=== PATIENT | male | born 1935 | race Caucasian/White ===

== ENCOUNTER 2017-06-24 14:13 | Inpatient (IN) | payer MEDICARE, OTHER ==
[~2017-06-24] VITALS: Ht 195.6 cm; Wt 112.5 kg
[~2017-06-24 14:13] MED LIST: ASPI325T32 PO; CLOP75TA3 PO; FURO-129 PO; GABA300C PO; GLIP2.5T2 PO; GLUC100016 PO; KRIL500C PO; LACT1CAP65 PO; LEVO88TA4 PO; LOSA100T29 PO; MECL-107 PO; MULT-64 PO; OMEP-113 PO; POTA20TA7 PO; UBID30CA12 PO
[2017-06-24 14:16] VITALS: BP 177/94; PULSE 63; RESP 16; O2SAT 96
[2017-06-24 16:57] LABS: BASOPHILS % (AUTO) 0.7 % (0-3); EOSINOPHILS % (AUTO) 3.2 % (0-5); Mean Corpuscular Hemoglobin 33.9 pg (27.0-35.0); Mean Corpuscular Volume 94.4 fL (81-100); NEUTROPHILS % (AUTO) 68.3 % (40-74); Platelet Count 138 bil/L (150-400)
--- NOTE | 2017-06-24 17:07 | DRSVH ---
PROCEDURE: X-RAY CHEST ONE VIEW, PORTABLE ([id number]) INDICATIONS: dyspnea TECHNIQUE: One view of the chest was acquired. COMPARISON: [facility], CR, XR CHEST 2VW, 10/04/2016, 13:26. FINDINGS: Surgical changes and devices: None. Lungs and pleura: No pleural effusions or pneumothorax. Lungs are clear. A basilar scarring/atelec tasis as before Mediastinum: Mediastinal contours appear normal. Heart size is normal. Bones and chest wall: No suspicious bony lesions. Overlying soft tissues appear unremarkable. IMPRESSION: No acute disease or interval change. Dictated by: Krishna Ramos M.D. on 06/24/2017 at 16:05 Approved by: Krishna Ramos M.D. on 06/24/2017 at 16:06
[2017-06-24 17:18] LABS: TROPONIN T < 0.010 ug/L (0.0-0.011)
--- NOTE | 2017-06-24 17:27 | ED.REPORT ---
HPI-Dyspnea / Wheezing Date of Service Jun 24, 2017 ED Provider: Quang Bond MD Pt is an 81 year old male with a history of cardiac stent, CAD, A-fib, bradycardia, DM, and HTN who presents to the ED complaining of dyspnea onset 3 days ago. He c/o associated SOB. He denies cough, fever, chest pain, and abdominal pain. The pt reports that he has experienced similar symptoms previously and he does not want a pacemaker. Nursing Notes Stated Complaint: TROUBLE BREATHING Chief Complaint: Respiratory Complaints Nursing Notes Reviewed: Yes Allergies: Coded Allergies: imipramine (Verified Allergy, Severe, Cardiac palpitaion and irregular heart beat, 06/24/17) pneumococcal vaccine (Verified Allergy, Severe, Anaphylaxis, 06/24/17) Penicillins (Verified Allergy, Intermediate, Rash, 06/24/17) ELISE Inhibitors (Verified Allergy, Unknown, 06/24/17) cephalexin (Verified Allergy, Unknown, 06/24/17) Scheduled Alpha Lipoic Acid (Alpha Lipoic Acid) 600 Mg Capsule 600 MG PO DAILY Aspirin (Aspirin) 325 Mg Tablet.dr 325 MG PO BID Clopidogrel Bisulfate (Plavix) 75 Mg Tablet 75 MG PO DAILY Gabapentin (Neurontin) 300 Mg Capsule 300-900 MG PO TID Glipizide ER (Glipizide ER) 2.5 Mg Tab.er.24 2.5 MG PO AM Levothyroxine (Levothyroxine) 88 Mcg Tablet 88 MCG PO DAILY Losartan Potassium (Losartan Potassium) 100 Mg Tablet 100 MG PO DAILY Multivitamin (Once Daily) 1 Each Tablet 1 EACH PO DAILY Potassium Chloride (Potassium Chloride) 10 Meq Tab.er.prt 10 MEQ PO DAILY TAKE WITH FOOD Scheduled PRN Glucosamine Sulfate 2Kcl (Glucosamine) 1,000 Mg Tablet 1,000 MG PO DAILY PRN PRN For Pain Lidocaine HCl (Lidocaine) 142 Appl/37.5 Gm Oint 1 APPL TOP q8 hours PRN PRN For Pain General Time Seen by MD: 17:14 Chief Complaint Other (dyspnea) Hx Obtained From: Patient, EMS Arrived By: Ambulance Sudden in Onset?: No Onset Occurred: 3 days ago Symptom Duration: Since onset Location: : None Severity: Current: No pain currently Severity: Maximum: No pain Recent Healthcare: Recent doctor visit Similar Sx Previous: Yes Past Medical History Past Medical History Chronic edema Rosacea Diabetic neuropathy Hypothyroidism History of vertigo Coronary disease history of stent to the left circumflex and angioplasty to the left anterior descending Bradycardia Reports: Cancer, Coronary artery disease, Diabetes mellitus, GERD, Hyperlipidemia, Hypertension Reports: Atrial fibrillation (not on coumadin) Past Surgical History Cardiac catheterization with stent to the left circumflex and angioplasty to left anterior descending artery (most recent cardiac cath 10/11/2014) Abd operation for adhesions Stint Reports: Angioplasty Smoking History Former Smoker Social History Alcohol Use: Denies alcohol use Drug Use: Denies drug use Ambulatory Status Independent Review of Systems Constitutional: Denies: Fever Respiratory: Reports: Dyspnea on exertion, Shortness of breath, Denies: Non-productive cough Cardiovascular: Denies: Chest pain Complete sys rev & neg: except as marked. GI: Denies: Abdominal pain Physical Exam Initial Vital Signs Vital Signs (First) Date Time Temp Pulse Resp B/P Pulse Ox O2 Delivery O2 Flow Rate FiO2 06/24/17 14:16 36.5 63 16 177/94 96 Room Air Initial VS: Reviewed Head / Eyes: Atraumatic, Normocephalic Abdomen / GI: Soft, Non-tender Extremities: Vascular intact, Neuro intact Skin: Warm, Dry, No cyanosis Neurologic: Alert, Oriented, Nonfocal Psychiatric: Mood/affect normal, Behavior normal General/Constitutional: Awake, Alert Neck: Atraumatic, Full range of motion Respiratory / Chest: Atraumatic, Breath sounds NL, Breath sounds = bilat Cardiovascular: Regular rhythm, Heart sounds NL, No murmurs Heart Rate / Rhythm: Positive: Bradycardia The heart rate would dip down into the 30's on the monitor. Interpretation & Diagnostics Lab Results Interpretation Result Diagram: 06/24/17 1652 06/24/17 1652 Test 06/24/17 16:52 06/24/17 17:56 White Blood Count 5.6th/mm3 (3.8-10.1) Red Blood Count 4.13mil/mm3 (4.40-5.80) Hemoglobin 14.0g/dL (13.8-17.2) Hematocrit 39.0% (41.0-50.0) Mean Corpuscular Volume 94.4fL (81-100) Mean Corpuscular Hemoglobin 33.9pg (27.0-35.0) Mean Corpuscular Hemoglobin Concent 35.9% (32.0-37.0) Red Cell Distribution Width 13.2% (12.3-15.4) Platelet Count 138bil/L (150-400) Neutrophils (%) (Auto) 68.3% (40-74) Lymphocytes (%) (Auto) 18.6% (14-46) Monocytes (%) (Auto) 9.0% (4-12) Eosinophils (%) (Auto) 3.2% (0-5) Basophils (%) (Auto) 0.7% (0-3) Sodium Level 139mEq/L (134-144) Potassium Level 4.2mEq/L (3.5-5.2) Chloride Level 104mEq/L (97-108) Carbon Dioxide Level 20mmol/L (18-29) Blood Urea Nitrogen 29mg/dL (8-27) Creatinine 1.08mg/dL (0.76-1.27) Estimat Glomerular Filtration Rate 70mL/min (>59) Glucose Level 104mg/dL (60-99) Calcium Level 9.4mg/dL (8.5-10.1) Total Bilirubin 0.4mg/dL (0.0-1.2) Aspartate Amino Transf (AST/SGOT) 21U/L (0-50) Alanine Aminotransferase (ALT/SGPT) 17U/L (0-44) Alkaline Phosphatase 57U/L (25-160) Pro-B-Type Natriuretic Peptide 680.7pg/mL (0-486) Total Protein 7.1g/dL (6.4-8.4) Albumin 3.9g/dL (3.4-5.0) Hold Desai Top Tube Received (Received) Urine Color Yellow (YELLOW) Urine Appearance Clear (CLEAR,HAZY) Urine pH 5.0 (5.0-8.0) Urine Specific [place] 1.010 (1.003-1.035) Urine Protein Negativemg/dL (NEG,TRACE) Urine Glucose (UA) Negativemg/dL (NEGATIVE) Urine Ketones Negativemg/dL (NEGATIVE) Urine Occult Blood Negative (NEGATIVE) Urine Nitrite Negative (NEGATIVE) Urine Bilirubin Negative (NEGATIVE) Urine Urobilinogen Normalmg/dL (NORMAL) Urine Leukocyte Esterase Negative (NEGATIVE) Urine RBC 0-2/hpf (0-2) Urine WBC 0-5/hpf (0-5) Urine Epithelial Cells Occasional/hpf (NONE-MOD) Urine Crystals None seen (NONE SEEN) Urine Bacteria None/hpf (NONE-FEW) Urine Hyaline Casts None/lpf (NONE) Urine Granular Casts None seen (NONE SEEN) Urine Waxy Casts None seen (NONE SEEN) Urine Red Blood Cell Casts None seen (NONE SEEN) Urine White Blood Cell Casts None seen (NONE SEEN) Urine Mucus None seen (None Seen) Urine Trichomonas None seen (NONE SEEN) Urine Yeast None (NONE SEEN) Urinalysis Comment None Urine Culture Reflexed Not indicated X-Ray Chest Interpretation Chest Xray Interpretation: IMPRESSION: No acute disease or interval change. Dictated by: Krishna Ramos M.D. on 06/24/2017 at 16:05 View: Portable, 1 view Interpretation / Wet Read by: Interpret - Radiologist Re-Eval/Medical Decision Med Decision/Clinical Course 81-year-old male history of bradycardia, atrial fibrillation, CAD presenting with dyspnea 3 days. He reports this happens when he gets bradycardic. He is bradycardic from the 30s to the 50s here. Chest x-ray normal. Troponins are negative. Likely with symptomatic bradycardia. His heart rate was in the 50s time of transfer. He will be admitted to the hospital for symptomatically bradycardia, dyspnea. Of note, patient does not want a pacemaker. He is DNR/DNI. Source of Hx: Old records Re-Evaluation/Progress : Time of Eval: 17:20 Re-Evaluation/Progress Note: Informed pt of plan for admission. Pt understands and agrees with plan for admission. All questions addressed. Consultation : Consulted With: Hospitalist Call Returned at: 17:59 Bioinformatics Computer Scientist: Will see patient, Agrees with eval, Agrees with plan, Accepts admit Note: Consulted with Resident who will be admitting for Dr. Dejesus. Counseled Regarding: Diagnosis, Lab results, Need for admission Discharge & Departure Impression: Primary Impression: Bradycardia Additional Impression: Dyspnea Dyspnea type: shortness of breath Qualified Code: R06.02 - Shortness of breath Disposition: ADMITTED TO HOSPITAL Discharge Condition All VS Reviewed: Yes Condition: Stable Referrals: Manuel Childress MD (PCP) Crit Care Except Billable Proc Time Spent: 30-74 minutes Services Performed: Patient management by me, Time spent at bedside, Reviewing test results, Reviewing imaging, Discussing patient care, Documentation in record, Time with fam/surrogate Scribe Attestation Portions of this note were transcribed by Tina Prasad. I, Dr. Bond personally performed the history, physical exam and medical decision-making; I reviewed and confirmed the accuracy of the information in the transcribed note. Signed by: Mk Collins, 06/24/17. copies to: Manuel Childress MD, Ben M MD Jun 24, 2017 17:27 Tina Landon Jun 24, 2017 17:31
[2017-06-24 17:35] VITALS: BP 181/87; PULSE 51; RESP 20; O2SAT 93
[2017-06-24] MEDS ORDERED: Alum-Mag Hydrox-Simeth 30 mL Suspension PO PRN ×2 (18:05→18:10)
[2017-06-24] MEDS ORDERED: Polyethylene Glycol (PEG) 17 Gm Powder PO PRN (18:05)
[2017-06-24] MEDS ORDERED: Ondansetron 2 mg/mL 2 mL Inj IVPUSH PRN ×2 (18:05→18:10)
[2017-06-24 18:20] LABS: APPEARANCE,URINE CLEAR (CLEAR,HAZY); COLOR,URINE YELLOW (YELLOW); OCCULT BLOOD,URINE NEGATIVE (NEGATIVE); UROBILINOGEN,URINE NORMAL (NORMAL)
[2017-06-24] MEDS ORDERED: POTA10TA38 PO (19:35)
[2017-06-24] MEDS ORDERED: ALPH600C3 PO (19:35)
[2017-06-24] MEDS ORDERED: LIDO5O TOP (19:35)
[2017-06-24] MEDS ORDERED: MULT-666 PO (19:36)
--- NOTE | 2017-06-24 20:34 | PCM.HPMED ---
Subjective Date of Service Jun 24, 2017 Primary Provider: Admitting Physician: Buck Gaytan MD Primary Care Physician: Manuel Childress MD Attending Physician: Buck Gaytan MD Chief Complaint: Bradycardia History of Present Illness: Mr. Wheeler is a 81-year-old male with past medical history of CAD status post stent placement 5 years ago, A. fib, bradycardia, diabetes mellitus, hypertension who presents to the ED today secondary to dyspnea 4-5 days. Patient states that over the last few days he has become periodically short of breath which typically will last a few minutes. He also reports that 3 days ago he had a transient episode of left leg and left hand numbness and tingling while brushing his teeth which has since resolved. He states he knows that he has atrial fibrillation but is adamant that his resting heart rate is 60. While in the ED patient had a episode of bradycardia with a heart rate in the 30s. During this episode patient states identical symptoms to those experienced over the last few days. He denies any associated chest pain, headache, visual disturbances, nausea or vomiting, abdominal pain or extremity swelling weakness or tingling. Patient states that he has had similar symptoms previously and has been evaluated by his mushroom farmer and does not wish to have pacemaker placement. In the ED EKG showed atrial flutter with left axis deviation. Troponin was negative x 1 Review of Systems: A comprehensive review of systems was conducted with the patient and found to be negative except as above in the history of present illness. Allergies Coded Allergies: imipramine (Verified Allergy, Severe, Cardiac palpitaion and irregular heart beat, 06/24/17) pneumococcal vaccine (Verified Allergy, Severe, Anaphylaxis, 06/24/17) Penicillins (Verified Allergy, Intermediate, Rash, 06/24/17) ELISE Inhibitors (Verified Allergy, Unknown, 06/24/17) cephalexin (Verified Allergy, Unknown, 06/24/17) Home Medications Scheduled Aspirin (Aspirin) 325 Mg Tablet. 325 MG PO DAILY Clopidogrel Bisulfate (Plavix) 75 Mg Tablet 75 MG PO DAILY Furosemide (Lasix) 20 Mg Tablet 20 MG PO DAILY Gabapentin (Neurontin) 300 Mg Capsule 900 MG PO BID Glipizide ER (Glipizide ER) 2.5 Mg Tab.er.24 2.5 MG PO AM Glucosamine Sulfate 2Kcl (Glucosamine) 1,000 Mg Tablet 1,000 MG PO DAILY Krill Oil (Krill Oil) 500 Mg Capsule 500 MG PO DAILY Lactobacillus Acidophilus (Probiotic) 1 Each Capsule 1 EACH PO DAILY Levothyroxine (Levothyroxine) 88 Mcg Tablet 88 MCG PO DAILY Losartan Potassium (Losartan Potassium) 100 Mg Tablet 100 MG PO DAILY Multivitamin (Multivitamins) 1 Each Tab.chew 1 EACH PO DAILY Omeprazole Magnesium (Omeprazole) 20 Mg Capsule.dr 20 MG PO EVERY OTHER DAY Potassium Chloride ER (Klor-Con M20) 20 Meq Tab.er.prt 10 MEQ PO DAILY Ubidecarenone (Coq-10) 30 Mg Capsule Unknown Dose PO DAILY Scheduled PRN Meclizine HCl (Meclizine HCl) 25 Mg Tablet 1 TAB PO TID PRN PRN For Dizziness 1-2 tabs PMH Chronic edema Rosacea Diabetic neuropathy Hypothyroidism History of vertigo Coronary disease history of stent to the left circumflex and angioplasty to the left anterior descending Bradycardia Reports: Cancer, Coronary artery disease, Diabetes mellitus, GERD, Hyperlipidemia, Hypertension Reports: Atrial fibrillation (not on coumadin) Surgical History Cardiac catheterization with stent to the left circumflex and angioplasty to left anterior descending artery (most recent cardiac cath 10/11/2014) Abd operation for adhesions Stent Reports: Angioplasty Family History Family history of hypertension Brother diabetes mellitus type II, cancer unknown Father CVA, diabetes mellitus type II Mother CVA Sister. 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 External ears without defect. Pupils equal, round, and reactive to light and accommodation. Oropharynx free of erythema and cobble stoning with moist mucosa. Neck: Supple with full range of motion. No jugular venous distension. Cardiovascular: Regular rate 56, with irregular rhythm, no murmurs appreciated Pulmonary: Clear to auscultation bilaterally with no crackles, wheezes, or rhonchi. Normal respiratory effort with no use of accessory muscles. Abdomen: Bowel tones present. Soft, nontender, nondistended. Extremities: No clubbing, cyanosis, edema Skin: Normal temperature, turgor, and texture Neurological: Cranial nerves grossly intact. Psychiatric: Normal mood and affect. Alert and oriented to person, place, and time. Lab and Diagnostics Result Diagram: 06/24/17 1652 06/24/17 165 X-Rays, CTs and MRIs . X-RAY CHEST ONE VIEW, PORTABLE IMPRESSION: No acute disease or interval change. Dictated by: Krishna Ramos M.D. on 06/24/2017 Assessment & Plan Mr. Wheeler is a 81-year-old male with past medical history of CAD status post stent placement 5 years ago, A. fib, bradycardia, diabetes mellitus, hypertension who presents to the ED today secondary to dyspnea 4-5 days admitted secondary to symptomatic bradycardia Symptomatic bradycardia. POA. Under evaluation History of same, followed by cardiology Cardiology consult placed Telemetry Echo Atropine ordered 0.5 mg for symptomatic bradycardia below 30 PRN Coronary artery disease. POA. Presumed stable Stent to left circumflex and angioplasty to the LAD Continue home meds aspirin, Plavix Diabetes mellitus type II. POA. Presumed stable Hold home glipizide A1c pending Correctional scale Diabetic neuropathy. POA. Presumed stable Continue gabapentin A1c pending Hypothyroidism. Present on admission. Presumed stable TSH pending Continue levothyroxine Hypertension. POA. Presumed stable Continue home losartan Atrial fibrillation. Chronic. POA. Presumed stable. Not on Coumadin Telemetry as above Patient Status: Patient was admitted under inpatient status with expected length of stay greater than two midnights due to severity of presenting symptoms , risk of adverse event, and complexity of treatment plan. GI Prophylaxis: H2 trinidad VTE Prophylaxis: Sub-Q Heparin (Unfractionated) Resuscitation Status: DNR/DNI:Do Not Resuscitate/Intubate Attending Statement The patient was seen and examined together with Dr. Cabrera on 06/24/2017 and I agree with the history, exam and plan as outlined in the note above. . copies to: Manuel Childress MD, GILES A DO Jun 24, 2017 20:34 Buck Gaytan MD Jun 25, 2017 16:05
[2017-06-24 20:46] VITALS: BP 180/101; PULSE 59; RESP 18; O2SAT 97
[2017-06-24] MEDS ORDERED: Glucose 40% Oral Gel 15 Gm Tube PO PRN (20:50)
[2017-06-24 21:04] VITALS: PULSE 47
[2017-06-24] MEDS ORDERED: Atropine 1 mg/10 mL (Code) Syringe IVPUSH PRN (21:05)
[2017-06-24] MEDS ORDERED: Dextrose 10% 250 ML IV PRN (21:15)
[2017-06-24 21:17] LABS: Magnesium 2.1 mg/dL (1.6-2.6)
[2017-06-24] MEDS: Insulin LISPRO 300 Unit/3 mL Inj SUBQ SCH (21:37)
[2017-06-24 23:39] VITALS: BP 161/89; PULSE 51; RESP 16; O2SAT 94
[2017-06-25] VITALS (8 sets, daily range): BP systolic 146–197; BP diastolic 74–99; PULSE 48–59; RESP 15–20; O2SAT 93–97
[2017-06-25] MEDS: Heparin 5,000 Unit/mL Inj SUBQ SCH ×4 (00:45→23:36)
[2017-06-25 02:57] LABS: BASOPHILS % (AUTO) 0.8 % (0-3); EOSINOPHILS % (AUTO) 3.7 % (0-5); MONOCYTES % (AUTO) 8.6 % (4-12); Mean Corpuscular Hemoglobin 33.4 pg (27.0-35.0); Mean Corpuscular Volume 94.4 fL (81-100); NEUTROPHILS % (AUTO) 63.1 % (40-74); Platelet Count 130 bil/L (150-400)
[2017-06-25 03:17] LABS: TROPONIN T 0.01 ug/L (0.0-0.011)
[2017-06-25 03:29] LABS: Magnesium 1.9 mg/dL (1.6-2.6)
--- NOTE | 2017-06-25 05:36 | NUR ---
Pt slept off and on this shift, A-fib 40-60, one 3 sec episode of melissa 37 while asleep. Denies dyspnea. BG 125 at HS. Gabapentin 900 mg given at 0300 for R foot pain with effective results. Plan for ECHO and cardiology consult in AM.
[2017-06-25] MEDS: Insulin LISPRO 300 Unit/3 mL Inj SUBQ SCH ×4 (08:00→22:00)
[2017-06-25] MEDS ORDERED: ALPHA LIPOIC ACID 600 MG PO SCH (08:30)
--- NOTE | 2017-06-25 10:22 | NUR ---
Social Work: Initial Assessment/Multidisciplinary Rounds D: Per EMR review, tp is an 81 year old male admitted for bradycardia, Dyspnea. Pt is Medicare with [employer] supplement and [employer]. PCP is Manuel Childress MD. NOK is Xin SolanoNegro, s/o, . Advanced directives completed- DAILY RELEASE AND DUPE PRINTER requested copy for chart. No RA SCORE entered at this time. Pt discussed in multidisciplinary rounds; pt is on day 1 of stay. Patient has cardiology consult and echo pending. Capacity for self-care and discharge needs/timeframe discussed. No concerns about capacity for self care identified. D/c timeframe not identified at this time. DAILY RELEASE AND DUPE PRINTER met with the patient at bedside. Sw role explained, d/c planning checklist declined by patient and contact info provided. See initial assessment. Pt lives in [place] with his s/o, Xin. Patient uses a cane at baseline for ambulation but is otherwise I with ADLs and self-care. Patient states that he lives in a single story home with 6 steps to enter. No history of HH or skilled rehab. Patient continues to drive and anticipates discharge home when medically stable. Pt not very receptive to discharge planning or needs. A: Pt who is I at baseline and lives with his s/o. P: Anticipate discharge home when medically stable; DAILY RELEASE AND DUPE PRINTER to continue to follow to assess for unmet discharge needs and patient's progress with mobility and ambulation. JOSE Ray Addendum: 06/25/17 at 1028 by DOTTIE WARE Amended: Links added.
--- NOTE | 2017-06-25 11:35 | CONS ---
[address] [address] CONSULTATION REPORT PATIENT: RUBINA ADAMS : 1935 MR#: [id number] ADMIT: 06/24/2017 JOB ID: [id number] DATE OF SERVICE: 06/25/2017 CARDIOLOGY CONSULTATION: CHIEF COMPLAINT: I was asked to see this patient as this is a known patient of mine who presented with dyspnea on exertion as well as bradycardia. HISTORY OF PRESENT ILLNESS: The patient is an 81-year-old man with history of coronary disease with stents placed in the LAD and circumflex arteries. He has a history of atrial fibrillation on no rate control. Incidentally after his initial stenting procedure, which was in the setting of a non-STEMI, he was placed on very low-dose beta trinidad and was readmitted due to heart failure symptoms related to bradycardia. After metoprolol was held, he did fine. We have discussed anticoagulation on multiple occasions and he states he does not want to be started on Coumadin or other anticoagulant agents; he prefers to stay on aspirin and Plavix. He also does not want to be on a statin. He generally has done fairly well, although he has likely slowed down, although on followup visits he has denied any problems with increased shortness of breath, chest pain, chest pressure, orthopnea, or PND. He had some lower extremity edema which is improved with compression stockings in the past. With this admission he had no chest pain or chest pressure, but did notice some dyspnea. In the ED he had a low heart rate in the 30s and it reproduced his symptoms. He said he has been feeling terrible. Today, he says, of course, that he has heart rates have been higher and they tend to run in the 50s to 60s. MEDICAL HISTORY/PROBLEM LIST: 1. History of coronary disease status post PCI to the LAD and circumflex arteries. 2. History of atrial fibrillation without any rate control. Tends to run on the low side. 3. History of heart failure symptoms after being placed on low-dose beta trinidad in the setting of low rate atrial fibrillation. Resolved with discontinuation of beta trinidad. 4. History of chronic lower extremity edema. Possibly venous in etiology. 5. Hypertension. 6. Hypothyroidism. 7. Diabetes mellitus. HOME MEDICATIONS: Include aspirin 325 a day, Plavix 75 a day, Lasix 20 mg daily, gabapentin 300 mg tablets 900 mg b.i.d., glipizide 2.5 mg daily, glucosamine, krill oil, levothyroxine 88 mcg daily, losartan 100 mg daily, omeprazole 20 mg daily, potassium 10 mEq daily. ALLERGIES: INCLUDE IMIPRAMINE, PNEUMOCOCCAL VACCINE, PENICILLINS, ELISE INHIBITORS, CEPHALEXIN. As noted, he does not wish to take Coumadin or any other anticoagulants other than Plavix and aspirin and he also feels that he is intolerant of statins. SOCIAL HISTORY: Former smoker. No alcohol use. FAMILY HISTORY: History of diabetes in his family as well as a stroke in his father and mother. REVIEW OF SYSTEMS: Overall health: No fevers, chills, night sweats, or weight loss. GI: No problems ulcers or blood in his stool. : No dysuria or hematuria. Pulmonary: Increased shortness of breath but no known lung disease. Cardiac: As per HPI. Musculoskeletal: No acute joint issues. Endocrine: No heat or cold intolerance. History for hypothyroidism and apparently his TSH is somewhat elevated. Skin: No breakdown appreciated. Neuro: No chronic headaches. ENT: Some hearing difficulty. No difficulty swallowing. Ophtho: No acute vision changes. Psych: No acute issues. All other review of systems on a 12-point review of system are negative. PHYSICAL EXAMINATION: Blood pressure is 159/74. Heart rate 56, averaging in the 50s. Sats are 96% on room air. General: In no acute distress. Speaking in full sentences without apparent shortness of breath. Head and neck: Normocephalic, atraumatic. No obvious JV distention. Heart: Irregular, without obvious murmurs, gallops, or rubs appreciated. Lungs: Clear to auscultation anteriorly. Back: No CVA tenderness to palpation. Abdomen: Soft. Extremities: Warm. No appreciable edema. Skin: Without breakdown appreciated. Neuro: Alert and interactive. Gait is not tested. Psych: Appropriate mood and affect. ENT: Mucous membranes moist. Ophtho vision grossly intact. DIAGNOSTIC STUDIES: EKG shows atrial fibrillation with a heart rate 55. IMAGING: Shows a chest x-ray that shows no acute disease. LABORATORIES: Show white count 4.9, H and H 13.2 and 37.3, platelets 130,000. Stable. Chemistry shows sodium 141, potassium 2.9. Chloride and bicarb 106 and 20, respectively. BUN and creatinine 29 and 1.16. Troponins all negative. LDL cholesterol 120, HDL 30. TSH 8.45 but the free T4 has not been sent as yet. IMPRESSION: The patient comes in with similar symptoms to that when he was on beta trinidad after atrial fibrillation. He had reproducible shortness of breath when his heart rate got into the 30s in the ED. He is not on any AV kimberly agents. He has chronic atrial fibrillation and does not wish to be on anticoagulation, other than aspirin and Plavix. PLAN: 1. He is getting an echocardiogram today, which I think is reasonable. 2. His symptoms could be related to his heart rate. He may have an inappropriate chronotropic response and it might finally be catching up him, producing similar symptoms as when we put him on low-dose beta trinidad. 3. I have discussed my concerns with him and I will discuss with his as well. TK
--- NOTE | 2017-06-25 16:38 | DRSVH ---
[facility] [address] [place] [address] Echocardiogram Report Name: RUBINA ADAMS Study Date: 06/25/2017 Height: 77 in Hospital Exam Location: [facility] Weight: 247 lb Gender: Male BSA: 2.4 m2 : 1935 Age: 81 yrs BP: 167/ 87 mmHg Reason For Study: BRADYCARDIA Ordering Physician: HOSPITALIST [facility] Performed By: Haily Knutson Referring Physician: Hans Perez Interpretation Summary The left ventricular ejection fraction is normal. The left atrium is severely dilated. There is moderate mitral regurgitation. There is mild to moderate aortic regurgitation. There is moderate tricuspid regurgitation. The right ventricular systolic pressure is estimated at least 65 mmHg assuming a right atrial pressure of 8 mm Hg. Compared to the prior echo exam, there has been an increase in the severity of pulmonary hypertension. Procedure: A two-dimensional transthoracic echocardiogram with color flow and Doppler was performed. The study quality was technically adequate. Comparison is made with the echocardiogram of 09/13/14. The patient was in sinus bradycardia with heart rates between 40 and 62 bpm during the exam. Left Ventricle: Left ventricular wall thickness is moderately increased. The left ventricle is normal in size. The left ventricular ejection fraction is normal. The ejection fraction is estimated to be 55-60%. There are no focal wall motion abnormalities. Right Ventricle: The right ventricle is normal size. Atria: The left atrium is severely dilated. Right atrial size is normal. There is no Doppler evidence for an interatrial shunt. Mitral Valve: The mitral valve leaflets appear thickened, but open well. The mitral valve leaflets appear to open well. There is moderate mitral regurgitation. Aortic Valve: The aortic valve is trileaflet. The aortic valve is slightly calcified. The aortic valve opens well. There is mild to moderate aortic regurgitation. Tricuspid Valve: The tricuspid valve is normal. There is moderate tricuspid regurgitation. The right ventricular systolic pressure is estimated at least 65 mmHg assuming a right atrial pressure of 8 mm Hg. Compared to the prior echo exam, there has been an increase in the severity of pulmonary hypertension. Pulmonic Valve: The pulmonic valve leaflets are thin and pliable; valve motion is normal. There is mild pulmonic regurgitation. Great Vessels: The aortic root is normal size. The ascending aorta is mildly enlarged. The aortic arch is mild-moderately enlarged. The pulmonary is not well visualized. The IVC is dilated (diameter is greater than 2.1 cm) yet it collapses greater than 50% with a sniff. This suggests a right atrial pressure of 8 mm Hg. Pericardium/ Pleura There is no pericardial effusion. There is no pleural effusion. MMode/2D Measurements & Calculations LVIDd: 5.4 cm RA long axis LVOT diam: 2.5 cm LVIDs: 3.9 cm LA A2 area: 43.8 cm AoV Opening FS: 27.9 % LA A4 area: 46.0 cm RA area EPSS: 1.0 cm LA length (vol) Ao root diam IVSd: 1.5 cm : 20.0 cm LVPWd: 1.4 cm LA vol: 230.5 ml RA vol asc Aorta Diam LA vol index : 54.6 ml RA Ao Arch Diam (Prox : 22.3 mm2 Trans): 4.1 cm IVC diam: 2.8 cm LV kumar. diameter/BSA LV sys. diameter/BSA RVD1 (basal) RVD2 (mid): 3.8 cm (cm/m^2): 2.2 (cm/m^2): 1.6 Doppler Measurements & Calculations Ao V2 max MV E max mario MV E/A: 3.5 TR max mario : 84.4 cm/sec : 92.3 cm/sec Med Peak E' Mario : 377.0 cm/sec Ao max P.8 mmHgMV A max mario TR max PG Ao mean PG : 26.4 cm/sec E/E' med: 12.9 : 56.9 mmHg MV P1/2t: 40.1 msec Lat Peak E' Mario PA V2 max LVOT Max Mario : 72.5 cm/sec : 97.5 cm/sec E/E' lat: 12.2 PA mean PG E/e' average : 1.0 mmHg TASHA(I,D): 5.0 cm sev ratio: 1.0 AI P1/2t : 811.3 msec AI dec slope : 158.7 cm/s2c MV dec time MV P1/2t max mario Ao V2 mean LV V1 max PG : 0.14 sec : 62.8 cm/sec MVA(P1/2t): 5.5 cm2 Ao V2 VTI: 18.5 cmLV V1 VTI TASHA(V,D): 5.7 cm2 : 18.5 cm PA V2 mean TASHA indexed to BSA : 46.7 cm/sec (cm^2/m^2): 2.0 PA pr(Accel) : 49.4 mmHg Electronically signed by: Cuba Austin on Reading Physician:06/25/2017 04:37 PM
--- NOTE | 2017-06-25 19:25 | PCM.PNMED ---
Subjective Date of Service Jun 25, 2017 Subjective Subjective: Patient states that he is feeling relatively well today, has not had any episodes of shortness of breath during the course of the day. We discussed the possibility of pacemaker placement. Initially the patient was reluctant to have pacemaker placed, however after much discussion the patient finally elected to undergo pacemaker placement. Risks and benefits of this procedure were discussed with the patient in the presence of Dr. Garcia. Events Overnight: No acute events overnight. ROS: Denies fever/chills, nausea/vomiting, headache, weakness, abdominal pain, chest pain, shortness of breath, increased swelling in hands or feet. Exam Vital Signs Vital Sign - Last Date Time Temp Pulse Resp B/P Pulse Ox O2 Delivery O2 Flow Rate FiO2 06/25/17 17:07 36.5 18 146/96 97 Nasal Cannula 2.00 06/25/17 12:05 55 Intake and Output 06/24/17 06/24/17 06/25/17 Cumulative From/Thru 15:00 23:00 07:00 06/24/17 14:16 - 06/25/17 06:38 Intake Total 100 ml 100 ml Balance 100 ml 100 ml Intake Oral 100 ml 100 ml # Voids 2 2 Exam General: No acute distress, well-developed, well-nourished Head: Normocephalic, atraumatic. External ears without defect. Eyes: Pupils equal, round, and reactive to light and accommodation. Anicteric sclerae, moist conjunctivae. Neck: Normal range of motion, no lymphadenopathy noted Cardiovascular: Regular rate and rhythm with no murmurs, rubs, or gallops appreciated Pulmonary: Clear to auscultation bilaterally with no crackles, wheezes, or rhonchi. Normal respiratory effort with no use of accessory muscles. Abdomen: Bowel tones present. Soft, nontender, nondistended. Extremities: No clubbing, cyanosis, edema Skin: Normal temperature, turgor, and texture; no rash, ulcers, or subcutaneous nodules appreciated. Neurological: Cranial nerves grossly intact. Reflexes, coordination, and sensory function within normal limits. Normal muscle strength, tone, and bulk. Psychiatric: Normal mood and affect. Alert and oriented to person, place, and time IVs and Medications Medications Reviewed: Medications were reviewed in detail Lab and Diagnostics Result Diagram: 06/25/1722906/25/17 0230 X-Rays, CTs and MRIs . X-RAY CHEST ONE VIEW, PORTABLE IMPRESSION: No acute disease or interval change. Dictated by: Krishna Ramos M.D. on 06/24/2017 Cardiac Echo Impressions Echocardiogram Interpretation Summary The ejection fraction is estimated to be 55-60% The left ventricular ejection fraction is normal. The left atrium is severely dilated. There is moderate mitral regurgitation. There is mild to moderate aortic regurgitation. There is moderate tricuspid regurgitation. The right ventricular systolic pressure is estimated at least 65 mmHg assuming a right atrial pressure of 8 mm Hg. Compared to the prior echo exam, there has been an increase in the severity of pulmonary hypertension. Electronically signed by: Cuba Austin on Reading Physician:06/25/2017 04:37 PM Assessment & Plan Mr. Wheeler is a 81-year-old male with past medical history of CAD status post stent placement 5 years ago, A. fib, bradycardia, diabetes mellitus, hypertension who presents to the ED today secondary to dyspnea 4-5 days admitted secondary to symptomatic bradycardia Symptomatic bradycardia. POA. Under evaluation History of same, followed by cardiology Cardiology consult placed, Dr. Son saw the patient and recommended consult with Dr. Garcia who also saw the patient. Echo complete, results as above Atropine ordered 0.5 mg for symptomatic bradycardia below 30 PRN Possible PE, POA, Under evaluation Patient has a history of atrial fibrillation and is not currently on Coumadin Chief complaint shortness of breath Echo shows increased right heart pressures increased from previous with moderate tricuspid regurg CTA to rule out PE on 06/26 Coronary artery disease. POA. Presumed stable Stent to left circumflex and angioplasty to the LAD (2011) Continue home meds aspirin, Plavix Diabetes mellitus type II. POA. Presumed stable Hold home glipizide A1c pending Correctional scale Diabetic neuropathy. POA. Presumed stable Continue gabapentin A1c pending Hypothyroidism. Present on admission. Presumed stable TSH elevated Continue levothyroxine 100 g Hypertension. POA. Presumed stable Continue home losartan Start Imdur Atrial fibrillation. Chronic. POA. Presumed stable. Not on Coumadin Telemetry as above - Patient to start Eliquis or Coumadin therapy post pacemaker placement Disposition: Patient will likely require 2-3 days of inpatient therapy prior to discharge home. GI Prophylaxis: H2 [place] VTE Prophylaxis: Sub-Q Heparin (Unfractionated) Resuscitation Status: DNR/DNI:Do Not Resuscitate/Intubate Attending Statement The patient was seen and examined together with Dr. Valladares on 06/25/2017 and I agree with the history, exam and plan as outlined in the note above. . Shawn Valladares DO Jun 25, 2017 19:25 Buck Gaytan MD Jun 28, 2017 16:21
--- NOTE | 2017-06-25 19:38 | NUR ---
Hypertension/Activity Pt. was hypertensive this afternoon with BP 197/92. HR in the 50s. Other vitals stable. f/u BP was 174/87. MDs notified and are aware. Later in the afternoon it came down to 140s/90s. Pt. has denied any bradycardic symptoms, and is now open to the idea of getting a pacemaker.
[2017-06-26] VITALS (8 sets, daily range): BP systolic 129–164; BP diastolic 68–97; PULSE 49–57; RESP 16–18; O2SAT 92–97
[2017-06-26 02:48] LABS: Mean Corpuscular Hemoglobin 33.5 pg (27.0-35.0); Mean Corpuscular Volume 95.3 fL (81-100)
[2017-06-26 03:07] LABS: Magnesium 1.9 mg/dL (1.6-2.6); Phosphorus 4.2 mg/dL (2.5-4.9)
--- NOTE | 2017-06-26 04:40 | NUR ---
Activity Pt ambulated in hallways this evening, completed one lap around unit using hand rail for balance and taking occasional breaks. O2 sats remained above 95%, mild dyspnea noted. When asked how he felt compared to his baseline pt stated "I feel close, but not quite there." Pt's partner expressed concerns over the phone regarding DC with plan for outpatient pacer placement, stating "I'm worried if he comes home now I'll just have to call and have him brought back." NPO after midnight in case of procedure tomorrow. Plan for CTA in AM.
[2017-06-26] MEDS: Isosorbide Mononitrate 30 mg ER24 Tablet PO SCH (08:01)
[2017-06-26] MEDS: Insulin LISPRO 300 Unit/3 mL Inj SUBQ SCH ×4 (08:12→21:17)
--- NOTE | 2017-06-26 08:15 | NUR ---
Up to chair Pt up to chair at shift change. Pt asking about CT scan. Ct called at 0730 to coordinate care. Pt aware of time range for CT scan. Care continues.
--- NOTE | 2017-06-26 10:07 | DRSVH ---
PROCEDURE: CT ANGIO CHEST PULMONARY EMBOLISM ([id number]) INDICATIONS: SOB, Pulm HTN TECHNIQUE: After the administration of intravenous contrast, 2 mm thick sections acquired from the pulmonary api agnes to the posterior costophrenic angles. 3-dimensional maximum intensity projection (MIP) coronal a nd sagittal reformats were then acquired through the thorax. For radiation dose reduction, the follo wing was used: automated exposure control, adjustment of mA and/or kV according to patient size. COMPARISON: [facility], CT, CT ABD W CON, 06/04/2017, 12:45. FINDINGS: Image quality: Excellent. Pulmonary arteries: Pulmonary arteries are normal in size, and demonstrate no intraluminal filling d efects to suggest central pulmonary embolism. Lungs and pleura: Diffuse scarring. Upper lobe predominant centrilobular emphysema. Scattered parench ymal bulla are seen within the posterior lower lobes. 1 cm pulmonary nodule seen in the right middle lobe image 38 series 5.. No pleural effusions or pneumothorax. Central and peripheral airways are p atent. Mediastinum: Heart size is enlarged, without pericardial effusion. Coronary artery calcifications a re seen. No mediastinal or hilar adenopathy. Thoracic aorta is normal in caliber and enhancement. E sophagus is normal in caliber, without hiatal hernia. Bones and chest wall: No suspicious bony lesions. There is a presumed vertebral body hemangioma imag e 136 series 7 in the lower thoracic spine with internal trabeculations. Ribs and thoracic spine appe ar intact throughout. Thyroid gland grossly unremarkable. No axillary or supraclavicular adenopathy . Abdomen: Simple appearing right renal and hepatic cysts. Partially visualized left renal cyst as befo re IMPRESSION: No evidence of pulmonary embolism. No focal consolidation identified. Diffuse scarring and severe upper lobe predominant centrilobular e mphysema. 1 cm right middle lobe pulmonary nodule, indeterminate in the absence of relevant comparison studies therefore recommend followup with [address] to exclude early malignancy/metastatic disease. Cardiomegaly and coronary artery disease. Dictated by: Krishna Ramos M.D. on 06/26/2017 at 8:58 Approved by: Krishna Ramos M.D. on 06/26/2017 at 9:05
[2017-06-26] MEDS: Heparin 5,000 Unit/mL Inj SUBQ SCH ×2 (11:32→19:34)
--- NOTE | 2017-06-26 15:06 | NUR ---
Spoke with patient's nurse, Marcella Estrada R.N regarding patient's scheduled pacemaker insertion at 10:30 06/27. 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 She also has question about patient's insulin a.m. I instructed her to obtain patient's blood sugar in am and call result to .
--- NOTE | 2017-06-26 16:24 | NUR ---
Left upper arm pain/cold Pt states 9/10 pain on left upper arm. Pt states arms gets worse each time BP is taken. Suggested BP taken on right arm, pt agrees. Administering Tylenol for pain. Pt states he can't get warm. Multiple heated blankets provided for patient. Heat turned up to 74 degrees, door closed. Pt resting. Care continues.
--- NOTE | 2017-06-26 18:03 | NUR ---
MRI Pt off floor to MRI, pt dinner waiting on bedside table, off tele for procedure. Tele notified. Care continues.
--- NOTE | 2017-06-26 18:44 | NUR ---
Returned from MRI Pt returned from MRI at approximately 1835. Placed back on tele. Pt up to chair eating dinner. called per pt request. Care continues.
--- NOTE | 2017-06-26 18:52 | PCM.PNMED ---
Subjective Date of Service Jun 26, 2017 Subjective Subjective: Patient states he is feeling relatively well today, similar to previous. He does not report any new symptoms overnight. Events Overnight: No acute events overnight. ROS: Denies fever/chills, nausea/vomiting, headache, weakness, abdominal pain, chest pain, shortness of breath, increased swelling in hands or feet. Exam Vital Signs Vital Sign - Last Date Time Temp Pulse Resp B/P Pulse Ox O2 Delivery O2 Flow Rate FiO2 06/26/17 16:13 36.6 49 16 143/70 92 Room Air 06/25/17 17:07 2.00 Intake and Output 06/25/17 06/25/17 06/26/17 Cumulative From/Thru 15:00 23:00 07:00 06/24/17 14:16 - 06/26/17 06:24 Intake Total 900 ml 300 ml 1300 ml Balance 900 ml 300 ml 1300 ml Intake Oral 880 ml 300 ml 1280 ml IV Total 20 ml 20 ml # Voids 2 3 7 # Bowel Movements 1 1 Exam General: No acute distress, well-developed, well-nourished Head: Normocephalic, atraumatic. External ears without defect. Eyes: Pupils equal, round, and reactive to light and accommodation. Anicteric sclerae, moist conjunctivae. Neck: Normal range of motion, no lymphadenopathy noted Cardiovascular: Regular rate and rhythm with no murmurs, rubs, or gallops appreciated Pulmonary: Clear to auscultation bilaterally with no crackles, wheezes, or rhonchi. Normal respiratory effort with no use of accessory muscles. Abdomen: Bowel tones present. Soft, nontender, nondistended. Extremities: No clubbing, cyanosis, edema Skin: Normal temperature, turgor, and texture; no rash, ulcers, or subcutaneous nodules appreciated. Neurological: Cranial nerves grossly intact. Reflexes, coordination, and sensory function within normal limits. Normal muscle strength, tone, and bulk. Psychiatric: Normal mood and affect. Alert and oriented to person, place, and time IVs and Medications Medications Reviewed: Medications were reviewed in detail Lab and Diagnostics Result Diagram: 06/26/1721406/26/17214 X-Rays, CTs and MRIs . X-RAY CHEST ONE VIEW, PORTABLE IMPRESSION: No acute disease or interval change. Dictated by: Krishna Ramos M.D. on 06/24/2017 Cardiac Echo Impressions Echocardiogram Interpretation Summary The ejection fraction is estimated to be 55-60% The left ventricular ejection fraction is normal. The left atrium is severely dilated. There is moderate mitral regurgitation. There is mild to moderate aortic regurgitation. There is moderate tricuspid regurgitation. The right ventricular systolic pressure is estimated at least 65 mmHg assuming a right atrial pressure of 8 mm Hg. Compared to the prior echo exam, there has been an increase in the severity of pulmonary hypertension. Electronically signed by: Cuba Austin on Reading Physician:06/25/2017 04:37 PM Assessment & Plan Mr. Wheeler is a 81-year-old male with past medical history of CAD status post stent placement 5 years ago, A. fib, bradycardia, diabetes mellitus, hypertension who presents to the ED today secondary to dyspnea 4-5 days admitted secondary to symptomatic bradycardia Symptomatic bradycardia with associated shortness of breath. POA. Under evaluation History of same, followed by cardiology Cardiology consult placed, Dr. Son saw the patient and recommended consult with Dr. Garcia who also saw the patient. Echo complete, results as above Atropine ordered 0.5 mg for symptomatic bradycardia below [address] negative for PE Left-sided neurological deficits, present on admission, active According the patient's history a few weeks ago he lost muscle control of the left leg and subsequently fell to the floor. Patient complains of minor residual left-sided weakness Physical therapy confirms minor left-sided deficits noted in balance and movement. - MRI 06/26 pending Coronary artery disease. POA. Presumed stable Stent to left circumflex and angioplasty to the LAD (2011) Continue home meds aspirin, Plavix Diabetes mellitus type II. POA. Presumed stable Hold home glipizide A1c pending Correctional scale Diabetic neuropathy. POA. Presumed stable Continue gabapentin A1c pending Hypothyroidism. Present on admission. Presumed stable TSH elevated Continue levothyroxine 100 g Hypertension. POA. Presumed stable Continue home losartan Start Imdur Atrial fibrillation. Chronic. POA. Presumed stable. Not on Coumadin Telemetry as above - Patient to start Eliquis or Coumadin therapy post pacemaker placement Disposition: Patient will likely require 2-3 days of inpatient therapy prior to discharge home. GI Prophylaxis: H2 [place] VTE Prophylaxis: Sub-Q Heparin (Unfractionated) Resuscitation Status: DNR/DNI:Do Not Resuscitate/Intubate Attending Statement The patient was seen and examined together with Dr. Valladares on 06/26/2017 and I agree with the history, exam and plan as outlined in the note above. . Shawn Valladares DO Jun 26, 2017 18:52 Buck Gaytan MD Jun 28, 2017 16:22
--- NOTE | 2017-06-26 19:33 | DRSVH ---
PROCEDURE: MRI BRAIN WITHOUT CONTRAST ([id number]) INDICATIONS: minor neurological defecits TECHNIQUE: Non-contrast axial T1 spin echo, axial T2 fast spin echo, sagittal and axial FLAIR, coronal T2 fast s pin echo, axial gradient echo, axial diffusion and ADC through the brain. COMPARISON: None. FINDINGS: Image quality: Excellent. CSF spaces: Ventricles appear symmetric in size and shape. Basal cisterns are patent. No extra-axi al fluid collections. Brain: No intracranial bleeds or mass effects. There is cerebral volume loss for age. There are mo derately severe periventricular and deep white matter chronic small vessel ischemic changes. Brainst em appears normal. Diffusion-weighted images show definite acute or subacute ischemic insults involv ing the right posterior parietal cortical brain parenchyma, without mass effect or associated hemorrh age. Additional small focus of diffusion at signal abnormality is seen at the temporal parietal junc tion on the right, series 2 image 65 versus the more clearly evident abnormalities scattered over leisa roximately a 4 cm area of the superior right cerebrum centered on series 2 image 72. No identified f ocal chronic ischemic insults. Normal intravascular flow voids are present. The note is made of inocencio ral deep white matter punctate foci of susceptibility artifact, left greater than right, chronic in a ppearance and which may reflect a mild manifestation of amyloid angiopathy. Skull and face: Calvarial bone marrow is normal in signal. Orbits are normal. Sinuses: Sinuses and mastoids are clear. IMPRESSION: Within the right cerebral hemisphere there are 2 areas of multifocal ischemic injury, th e most prominent of which is comprised of approximately 6 separate small ovoid areas of cortical isch emic injury each measuring less than 1 cm, consistent with a local fragmentation of an intra-arterial embolus. The second is subtle, and located at the posterior temporal area near its junction with th e inferior margin of the parietal lobe. Both of these areas show no mass effect or hemorrhage. 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 Dictated by: Timur Norris M.D. on 06/26/2017 at 19:21 Approved by: Timur Norris M.D. on 06/26/2017 at 19:31
[2017-06-27] VITALS (16 sets, daily range): BP systolic 110–173; BP diastolic 65–89; PULSE 42–60; RESP 13–20; O2SAT 92–97
[2017-06-27] MEDS: Heparin 5,000 Unit/mL Inj SUBQ SCH ×3 (03:18→20:44)
[2017-06-27] MEDS ORDERED: Ketorolac 15 mg/mL Inj IVPUSH ONE (04:00)
[2017-06-27 04:37] LABS: BASOPHILS % (AUTO) 0.9 % (0-3); EOSINOPHILS % (AUTO) 3.6 % (0-5); MONOCYTES % (AUTO) 8.3 % (4-12); Mean Corpuscular Hemoglobin 33.4 pg (27.0-35.0); Mean Corpuscular Volume 94.5 fL (81-100); NEUTROPHILS % (AUTO) 71.1 % (40-74); Platelet Count 140 bil/L (150-400)
--- NOTE | 2017-06-27 04:51 | NUR ---
Pain/cardiac Pt c/o 07/22 burning pain in great toes bilat. Medicates PRN at home with gabapentin, per his report, up to 3000mg daily. Pain unresolved with 900 mg at bedtime plus PRN aleve 500 mg. Rec'd order for toradol 15 mg x1 which was given with effective results, pt stated that his pain was gone "almost completely." A-fib/flutter bradycardic 38-60, one asymptomatic episode of 8 beats vtach. NPO since midnight for pacer placement tomorrow.
--- NOTE | 2017-06-27 07:45 | NUR ---
OOB Pt OOB into chair asking about procedure time. Pt aware of time on white board. Pt states he would like to go earlier if possible. Listened and encouraged patient. Redirected pt. Pt states he is more relaxed. Care continues.
[2017-06-27] MEDS: Insulin LISPRO 300 Unit/3 mL Inj SUBQ SCH ×4 (08:00→22:00)
[2017-06-27] MEDS: Isosorbide Mononitrate 30 mg ER24 Tablet PO SCH (09:18)
[2017-06-27] MEDS ORDERED: Heparin 10,000 Unit/1,000 mL NS Premix IV ONE (10:34)
[2017-06-27] MEDS ORDERED: Bupivacaine-MPF 0.5% 30 mL Inj ONE (10:35)
[2017-06-27] MEDS ORDERED: Vancomycin 1,000 mg Inj ONE (10:44)
[2017-06-27] MEDS ORDERED: Vancomycin 1,000mg/200 mL NS IV ONE (10:46)
--- NOTE | 2017-06-27 10:47 | NUR ---
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 IV placed in LAC by this RN. Care continues.
[2017-06-27] MEDS ORDERED: 0.9% Sodium Chloride 250 ML ONE (10:48)
[2017-06-27] MEDS ORDERED: fentaNYL-PF 50 mCg/mL 2 mL Inj ONE (10:51)
--- NOTE | 2017-06-27 11:28 | PCM.PNMED ---
Subjective Date of Service Jun 27, 2017 Subjective Subjective: Patient states it is feeling relatively well today. We discussed the results of his MRI completed last night and the likelihood of anticoagulation post ICD placement. Events Overnight: No acute events overnight. ROS: Denies fever/chills, nausea/vomiting, headache, weakness, abdominal pain, chest pain, shortness of breath, increased swelling in hands or feet. Exam Vital Signs Vital Sign - Last Date Time Temp Pulse Resp B/P Pulse Ox O2 Delivery O2 Flow Rate FiO2 06/27/17 08:40 Supplement Oxygen 06/27/17 08:40 36.6 59 16 171/87 96 06/25/17 17:07 2.00 Intake and Output 06/26/17 06/26/17 06/27/17 Cumulative From/Thru 15:00 23:00 07:00 06/24/17 14:16 - 06/27/17 05:07 Intake Total 760 ml 400 ml 2460 ml Balance 760 ml 400 ml 2460 ml Intake Oral 760 ml 400 ml 2440 ml IV Total 20 ml # Voids 3 4 14 # Bowel Movements 1 0 2 Exam General: No acute distress, well-developed, well-nourished Head: Normocephalic, atraumatic. External ears without defect. Eyes: Pupils equal, round, and reactive to light and accommodation. Anicteric sclerae, moist conjunctivae. Neck: Normal range of motion, no lymphadenopathy noted Cardiovascular: Regular rate and rhythm with no murmurs, rubs, or gallops appreciated Pulmonary: Clear to auscultation bilaterally with no crackles, wheezes, or rhonchi. Normal respiratory effort with no use of accessory muscles. Abdomen: Bowel tones present. Soft, nontender, nondistended. Extremities: No clubbing, cyanosis, edema Skin: Normal temperature, turgor, and texture; no rash, ulcers, or subcutaneous nodules appreciated. Neurological: Cranial nerves grossly intact. Reflexes, coordination, and sensory function within normal limits. Normal muscle strength, tone, and bulk. Psychiatric: Normal mood and affect. Alert and oriented to person, place, and time IVs and Medications Medications Reviewed: Medications were reviewed in detail Lab and Diagnostics Result Diagram: 06/27/1742406/27/17424 X-Rays, CTs and MRIs . X-RAY CHEST ONE VIEW, PORTABLE IMPRESSION: No acute disease or interval change. Dictated by: Krishna Ramos M.D. on 06/24/2017 Cardiac Echo Impressions Echocardiogram Interpretation Summary The ejection fraction is estimated to be 55-60% The left ventricular ejection fraction is normal. The left atrium is severely dilated. There is moderate mitral regurgitation. There is mild to moderate aortic regurgitation. There is moderate tricuspid regurgitation. The right ventricular systolic pressure is estimated at least 65 mmHg assuming a right atrial pressure of 8 mm Hg. Compared to the prior echo exam, there has been an increase in the severity of pulmonary hypertension. Electronically signed by: Cuba Austin on Reading Physician:06/25/2017 04:37 PM Assessment & Plan Mr. Wheeler is a 81-year-old male with past medical history of CAD status post stent placement 5 years ago, A. fib, bradycardia, diabetes mellitus, hypertension who presents to the ED today secondary to dyspnea 4-5 days admitted secondary to symptomatic bradycardia Symptomatic bradycardia with associated shortness of breath. POA. Under evaluation History of same, followed by cardiology Cardiology consult placed, Dr. Son saw the patient and recommended consult with Dr. Garcia who also saw the patient. 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 Patient complains of minor residual left-sided weakness Physical therapy confirms minor left-sided deficits noted in balance and movement. 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 - Continue with pacemaker as placement previously planned Coronary artery disease. POA. Presumed stable Stent to left circumflex and angioplasty to the LAD (2011) Continue home meds aspirin, Plavix Diabetes mellitus type II. POA. Presumed stable Hold home glipizide A1c pending Correctional scale Diabetic peripheral neuropathy. POA. Presumed stable Bilateral pain radiating down both legs, patient also complaining of pain in the right big toe No previous diagnosis of gout, possibly secondary to neuropathy Continue gabapentin A1c 5.8 Hypothyroidism. Present on admission. Presumed stable TSH elevated Levothyroxine 100 g Hypertension. POA. Presumed stable Continue home losartan Start Imdur Atrial fibrillation. Chronic. POA. Presumed stable. Not on Coumadin Telemetry as above - Patient to start Eliquis or Coumadin therapy post pacemaker placement Disposition: Patient will likely require 2-3 days of inpatient therapy prior to discharge home. GI Prophylaxis: H2 [place] VTE Prophylaxis: Sub-Q Heparin (Unfractionated) Resuscitation Status: DNR/DNI:Do Not Resuscitate/Intubate Attending Statement The patient was seen and examined together with Dr. Valladares on 06/27/2017 and I agree with the history, exam and plan as outlined in the note above. . Shawn Valladares DO Jun 27, 2017 11:28 Buck Gaytan MD Jun 28, 2017 16:22
[2017-06-27] MEDS: 0.9% Sodium Chloride 1,000 ML IV SCH ×2 (11:42→21:42)
[2017-06-27] MEDS ORDERED: HYDROcodone-APAP 5-325 mg Tablet PO PRN (11:45)
--- NOTE | 2017-06-27 12:24 | DRSVH ---
PROCEDURE: X-RAY CHEST ONE VIEW, PORTABLE ([id number]) INDICATIONS: For new leads placed TECHNIQUE: One view of the chest was acquired. COMPARISON: 06/24/2017 FINDINGS: Surgical changes and devices: Permanent single lead cardiac pacemaker with Lungs and pleura: No pleural effusions or pneumothorax. Lungs are clear. There may be a small calci fied granuloma in the right lower lobe laterally. Mediastinum: Mediastinal contours appear normal. Heart size is normal. Tortuous aorta. Bones and chest wall: No suspicious bony lesions. Overlying soft tissues appear unremarkable. IMPRESSION: No acute cardiopulmonary abnormality. Dictated by: Lico Mcconnell M.D. on 06/27/2017 at 12:20 Approved by: Lico Mcconnell M.D. on 06/27/2017 at 12:23
--- NOTE | 2017-06-27 13:38 | PROG NOTE ---
[address] [address] PROGRESS NOTE PATIENT: RUBINA ADAMS : 1935 MR#: [id number] ADMIT: 06/24/2017 JOB ID: [id number] DATE: 06/27/2017 CARDIOLOGY PROGRESS NOTE: IDENTIFICATION: The patient is a pleasant 81-year-old man with known coronary artery disease, preserved LV function, chronic atrial fibrillation, admitted with profound bradycardia. Heart rates in the 30s. On no AV kimberly blocking agents. He denies syncope but has had near-syncope. He denies any chest pain, pressure, or discomfort. He gets quite dyspneic with his episodes. IMPRESSION AND RECOMMENDATION: The patient is a pleasant 81-year-old man with chronic atrial fibrillation, coronary artery disease, preserved left ventricular (LV) function, and profound symptomatic bradycardia without any offending agents. As such, I recommended a single-chamber pacemaker implantation. I discussed the risks and benefits with him and his at length. Ultimately he wished to proceed. PLAN: Single-chamber pacemaker implantation. I strongly urged the patient to start anticoagulation given his recent identification of occult history of chronic atrial fibrillation and lack of anticoagulation. He agreed. Thank you very much for allowing me to participate in the care of this patient. Please call with any questions.
--- NOTE | 2017-06-27 15:52 | NUR ---
PCC Pt back to floor at approximately 1420. Site CDI covered with gauze. Handoff from Vandana OVALLES. Pt resting, waiting for signficant other. Care continues.
[2017-06-27] MEDS ORDERED: Vancomycin Inj 1,000 MG in IV Premix 1 EACH IV ONE (23:45)
[2017-06-28 03:20] VITALS: BP 158/76; PULSE 60; RESP 16; O2SAT 92
[2017-06-28] MEDS: Heparin 5,000 Unit/mL Inj SUBQ SCH ×2 (03:25→11:30)
[2017-06-28 04:34] LABS: Mean Corpuscular Hemoglobin 33.6 pg (27.0-35.0); Mean Corpuscular Volume 96.1 fL (81-100)
--- NOTE | 2017-06-28 04:54 | NUR ---
Activity/NOC Pt OOB to use BR with this RN. Pt insisted to be left alone and demanded RN to leave. Pt balance and gait effected by CVA. Pt accepted help back into bed and apologized. Tele shows Afib with HR in 60s and occasional paced. dress c/d/i. VSS will continue to monitor.
[2017-06-28 05:52] VITALS: PULSE 60
[2017-06-28] MEDS: 0.9% Sodium Chloride 1,000 ML IV SCH (07:42)
[2017-06-28] MEDS: Insulin LISPRO 300 Unit/3 mL Inj SUBQ SCH (08:00)
[2017-06-28 08:28] VITALS: BP 178/103; PULSE 61; RESP 16; O2SAT 96
[2017-06-28 08:34] VITALS: PULSE 62
[2017-06-28] MEDS: Isosorbide Mononitrate 30 mg ER24 Tablet PO SCH (08:47)
--- NOTE | 2017-06-28 08:58 | DRSVH ---
PROCEDURE: X-RAY CHEST, TWO VIEWS ([id number]) INDICATIONS: For new lead placement TECHNIQUE: 2 views of the chest were acquired. COMPARISON: [facility], CR, XR CHEST 2VW, 10/04/2016, 13:26. FINDINGS: Surgical changes and devices: Single lead cardiac pacer is in place. Lungs and pleura: No pleural effusions or pneumothorax. Lungs are clear. Mediastinum: Mediastinal contours are normal. Heart size is normal. Bones and chest wall: No suspicious bony abnormalities. Soft tissues appear unremarkable. IMPRESSION: No acute cardiopulmonary disease process. Dictated by: Radha Cobb MD, PhD on 06/28/2017 at 8:55 Approved by: Radha Cobb MD, PhD on 06/28/2017 at 8:56
--- NOTE | 2017-06-28 09:16 | PCM.PNCARD ---
Subjective Date of service Jun 28, 2017 Chief Complaint Pt presented with profound bradycardia ( 30's) with chronic afib. No hx of rate control meds. Previous nstemi with chf secondary to beta blockade post SD. Previous refusal of anticoag treatment for stroke prophylaxis with afib. He was evaluated by Dr Garcia and received a single chamber [employer] pacemaker yesterday. He is a bit annoyed by the sling and has not been using it today. He did not sleep well last night secondary to incontinence that occurred because of ambulatory difficulties with the sling. He denies fever, chill, pain swelling or redness at the pocket site. No arm pain or tingling. He has no SOB> admits to mild tenderness to right lower parasternal chest. Exam Vital Signs Vital Sign - Last Date Time Temp Pulse Resp B/P Pulse Ox O2 Delivery O2 Flow Rate FiO2 06/28/17 08:51 Supplement Oxygen 06/28/17 08:34 62 06/28/17 08:28 36.5 16 178/103 96 06/25/17 17:07 2.00 Intake and Output 06/27/17 06/27/17 06/28/17 Cumulative From/Thru 15:00 23:00 07:00 06/24/17 14:16 - 06/28/17 06:07 Intake Total 400 ml 540 ml 3400 ml Balance 400 ml 540 ml 3400 ml Intake Oral 400 ml 340 ml 3180 ml IV Total 200 ml 220 ml # Voids 3 3 20 # Bowel Movements 2 Additional Information: He is in no apparent distress sitting in bedside chair. He is alert and oriented. Chest is symmetrical. There is no significant redness, swelling, bruising or tenderness to the pocket. No discharge. Chest is symmetric, lungs are clear. Heart sounds distant otherwise regular. Upper extremities are symmetrical with no swelling and normal pulses. Lab and Diagnostics Result Diagram: 06/28/17 0308 06/28/17 0308 Assessment & Plan Assessment Pt with chronic afib presented with profound bradycardia and had implanted single chamber [employer] PPM. He is doing relatively well today. INstructions reviewed with him and IM resident for discharge. I sent message for the office to have fu for 1 wk with pacer clinic and 4-6 weeks with [facility]. BP was elevated and Manager Telemetry will address prior to discharge. Doxy 100mgs daily for 1 week. No lifting elbow above shoulder for 1 month or lifting > 10lbs. May show as instructed. He does not use tub. Call the office if any sign of fever , increasing pain, swelling, redness, pocket site discharge/ drainage. Note pacemaker check completed and normal per report. CXR taken this am, report review pending at time of this note. To be reviewed prior to discharge for pneumothorax or lead abnormalities. Problems: GI Prophylaxis: H2 [place] VTE Prophylaxis: Sub-Q Heparin (Unfractionated) Resuscitation Status: DNR/DNI:Do Not Resuscitate/Intubate Buck Alva PA-C Jun 28, 2017 09:16
--- NOTE | 2017-06-28 09:24 | OP ---
[address] [address] OPERATIVE REPORT PATIENT: RUBINA ADAMS : 1935 MR#: [id number] ADMIT: 06/24/2017 JOB ID: [id number] DATE OF SURGERY: 06/27/2017 PREOPERATIVE DIAGNOSIS(ES): 1. Sick sinus syndrome. 2. Chronic atrial fibrillation. 3. Profound symptomatic bradycardia. POSTOPERATIVE DIAGNOSIS(ES): 1. Sick sinus syndrome. 2. Chronic atrial fibrillation. 3. Profound symptomatic bradycardia. PROCEDURES PERFORMED: 1. Single-chamber pacemaker implantation. 2. Fluoroscopy. SURGEON: Esequiel Garcia MD. MEDICAL SURGICAL TECH: Preet Holbrook. EXPLANTED/IMPLANTED DEVICES: 1. [employer] pulse generator Model [id number], serial #[id number]. 2. RV lead, [employer] 2083 , serial #[id number]. ANESTHESIA: Bolus dosing of Versed and fentanyl . INDICATION: Patient is a pleasant 81-year-old man with profound symptomatic bradycardia and no offending agents. After discussion of the risks and benefits of pacemaker implantation, he opted to proceed. PROCEDURE DESCRIPTION: prepped and draped in sterile fashion. The left infraclavicular region was infiltrated with 40 cc of a 50/50 mixture of bupivacaine and lidocaine. Once adequate anesthesia had been achieved, a 3 cm transverse performed . Dissection was carried down to the pectoralis fascia. A pocket was then fashioned using a combination of electrocautery and blunt dissection. Once adequate hemostasis had been achieved, access was gotten to the left axillary vein over the first rib with a micropuncture needle to deploy a 0.035, 3 mm J guidewire. Over this, a 6-Luxembourgish tear-away sheath was advanced active fixation lead was advanced to the RV outflow tract the RV apex. The lead was affixed in position using associated active fixation screws. The external connected to the external analyzer evidence of diaphragmatic stimulation. Once the position and redundancy of the lead was confirmed with multiple fluoroscopic views, the lead was anchored to the prepectoral fascia using antibiotic solution. The lead was connected to a floor of the pocket using 1-0 Ti-Cron suture. The incision was then closed with running layers of absorbable suture. The wound was dressed with skin adhesive and a small dressing. At the end of procedure, the needle, sponge, and instrument counts were all correct. COMPLICATIONS: None. ESTIMATED BLOOD LOSS: . DEVICE MEASURED DATA: 7.7 mV, 480 ohms, 0.75 V at 0.4 msec. FINAL PROGRAM PARAMETERS: VVIR 60 beats per minute. IMPRESSION: Successful single-chamber pacemaker implantation. PLAN: 1. Stat portable chest x-ray. 2. PA and lateral chest x-ray in the morning. 3. Device interrogation in the morning. 4. IV vancomycin through tomorrow. 5. Doxycycline 100 mg p.o. daily x1 week starting . supervised/performed all aspects of this procedure.
[2017-06-28] MEDS ORDERED: LEVO100T6 PO (10:49)
[2017-06-28] MEDS ORDERED: IRBE300T18 PO (10:49)
[2017-06-28] MEDS ORDERED: DOXY100C43 PO (10:49)
[2017-06-28] MEDS ORDERED: ISOS30TA4 PO (10:49)
[2017-06-28] MEDS ORDERED: CARV12.52 PO (10:49)
[2017-06-28] MEDS ORDERED: ALPH600C3 PO (10:49)
[2017-06-28] MEDS ORDERED: APIX5TAB PO (11:09)
--- NOTE | 2017-06-28 11:18 | PCM.DIMED ---
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 Coronary artery disease Diabetes mellitus type II Diabetic peripheral neuropathy Hypothyroidism Hypertension Atrial fibrillation Medication Instructions Additional med instructions We would like you to continue home medications as previous except for the following changes: He may continue to take aspirin, Plavix, glipizide, glucosamine, lidocaine, multivitamin, potassium chloride all as previous We would like you to take your gabapentin consistently at 900 mg 3 times per day Begin taking: Carvedilol 12.5 mg twice a day Doxycycline 100 mg daily Isosorbide mononitrate extended release 30 mg daily We have changed your: Levothyroxine from 88 g daily to 100 g daily Losartan 100 mg daily to Irbesartan 300 mg daily Alpha lipoic acid from 600 mg daily to 600 mg 3 times per day Test Results Test Results Multiple imaging modalities were completed during her stay here in the hospital which showed the following: Multiple x-rays were obtained which showed no acute disease A CT scan was completed which showed no evidence of pulmonary embolism, however showed diffuse scarring of the lung along with a 1 cm right middle lobe "nodule " which should be followed up in the next 3 months as malignancy cannot be ruled out at this time. 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 Diet Discharge Diet: Heart Healthy Activity Discharge Activity: Home Health Phyical Therapy Call your provider Call your provider for: Fever or Chills, Shortness of breath, Bleeding, Chest pain, Vomitting, Excessive diarrhea, Weakness (unilateral) Patient Instructions Patient Instructions We would like you to continue following taking medications as outlined above. We have discussed possible remedies for the pain in her toes, firstly we suggest taking gabapentin as scheduled 3 times a day. Additionally taking your alpha lipoic acid 600 mg 3 times a day. If your pain is still uncontrolled with these adjustments consider CBD at night for pain and/or low-dose oxycodone 2.5-5 mg. We have arranged for home health nursing, physical therapy, occupational therapy to assist you at home with medications, movement and rehabilitation. Please be very careful sitting/standing she we are now starting you on a blood thinning medication which can have serious effects if you were to fall. In any event that you are to hit her head you should come to the emergency department as soon as possible. Follow-up plan Because of the many changes to your medication regimen it is important that you get close follow-up with a primary care provider. We have also set up an appointment for you with the pacemaker clinic who will contact you and let you know the date of this appointment, we would also like you to follow-up with Bebo Munoz in 4-6 weeks, you will also get a call about that appointment. Again, home health will also following up with you 2-3 times per week initially for physical therapy and occupational therapy as well as nursing. Follow-up Provider: Manuel Childress MD Follow-up with PCP in: 1 week Provider: MARLENE JAMES [facility] Follow-up in: 1 week Buck Gaytan MD 06/28/17 1623: Discharge Instructions Attending's Statement The patient was seen and examined together with Dr. Valladares on 06/28/2017 and I agree with the history, exam and plan as outlined in the note above. . Shawn Valladares DO Jun 28, 2017 11:18 Buck Gaytan MD Jun 28, 2017 16:23
--- NOTE | 2017-06-28 13:51 | NUR ---
Discharge Pt discharged to home with transportation by his spouse. Pt's IV's dc'd intact. Telemetry removed and tech notified. Pt's discharge instructions, follow up appointments and new medications reviewed with pt and his (caregiver). All questions were answered and pt and spouse voiced understanding. All belongings gathered for transportation with pt. Pt was escorted off unit to his POV by IRIS.
--- NOTE | 2017-06-28 14:03 | NUR ---
Social Work: Discharge D: EMR reviewed. Pt is on day 4 of hospitalization. Pt medically stable for discharge home today via POV. No discharge needs identified, no MD orders received. Pt not receptive to discharge planning or needs. A: Pt who is independent at baseline P: Pt to discharge home today via POV.No discharge needs identified, no MD orders received. JOES Sterling Addendum: 06/28/17 at 1518 by JOSEFA YBRARA MARTIN met with MD regarding pt's discharge. MD placed order for HH after pt's discharge. MARTIN requested F2F to be completed. MARTIN placed T/C to pt's S/O Xin Bond [phone] regarding HH recommendation. Xin and pt agreeable. Pt did not have a HH choice. MARTIN selected [facility] based on rotating vendor calendar. MARTIN placed referral call to Alina at [facility] and provided access. MARTIN to notify Alina once F2F complete. JOSE Sterling
--- NOTE | 2017-06-28 16:09 | PCM.DC.MED ---
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 Son, Dr. Garcia Procedures XRay, CTs & MRIs X-RAY CHEST ONE VIEW, PORTABLE IMPRESSION: No acute disease or interval change. Dictated by: Krishna Ramos M.D. on 06/24/2017 CT ANGIO CHEST PULMONARY EMBOLISM IMPRESSION: No evidence of pulmonary embolism. No focal consolidation identified. Diffuse scarring and severe upper lobe predominant centrilobular emphysema. 1 cm right middle lobe pulmonary nodule, indeterminate in the absence of relevant comparison studies therefore recommend followup with [address] to exclude early malignancy/metastatic disease. Cardiomegaly and coronary artery disease. Dictated by: Krishna Ramos M.D. on 06/26/2017 at 8:58 Approved by: Krishna Ramos M.D. on 06/26/2017 at 9:05 MRI BRAIN WITHOUT CONTRAST IMPRESSION: Within the right cerebral hemisphere there are 2 areas of multifocal ischemic injury, the most prominent of which is comprised of approximately 6 separate small ovoid areas of cortical ischemic injury each measuring less than 1 cm, consistent with a local fragmentation of an intra- arterial embolus. The second is subtle, and located at the posterior temporal area near its junction with the inferior margin of the parietal lobe. Both of these areas show no mass effect or hemorrhage. 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 Dictated by: Timur Norris M.D. on 06/26/2017 at 19:21 Approved by: Timur Norris M.D. on 06/26/2017 at 19:31 X-RAY CHEST ONE VIEW, PORTABLE IMPRESSION: No acute cardiopulmonary abnormality. Dictated by: Lico Mcconnell M.D. on 06/27/2017 at 12:20 Approved by: Lico Mcconnell M.D. on 06/27/2017 at 12:23 X-RAY CHEST, TWO VIEWS IMPRESSION: No acute cardiopulmonary disease process. Dictated by: Radha Cobb MD, PhD on 06/28/2017 at 8:55 Approved by: Radha Cobb MD, PhD on 06/28/2017 at 8:56 Cardiac Echo Impression Echocardiogram Interpretation Summary The ejection fraction is estimated to be 55-60% The left ventricular ejection fraction is normal. The left atrium is severely dilated. There is moderate mitral regurgitation. There is mild to moderate aortic regurgitation. There is moderate tricuspid regurgitation. The right ventricular systolic pressure is estimated at least 65 mmHg assuming a right atrial pressure of 8 mm Hg. Compared to the prior echo exam, there has been an increase in the severity of pulmonary hypertension. Electronically signed by: Cuba Austin on Reading Physician:06/25/2017 04:37 PM Brief History Taken from H&P completed by Dr. Cabrera Mr. Wheeler is a 81-year-old male with past medical history of CAD status post stent placement 5 years ago, A. fib, bradycardia, diabetes mellitus, hypertension who presents to the ED today secondary to dyspnea 4-5 days. Patient states that over the last few days he has become periodically short of breath which typically will last a few minutes. He also reports that 3 days ago he had a transient episode of left leg and left hand numbness and tingling while brushing his teeth which has since resolved. He states he knows that he has atrial fibrillation but is adamant that his resting heart rate is 60. While in the ED patient had a episode of bradycardia with a heart rate in the 30s. During this episode patient states identical symptoms to those experienced over the last few days. He denies any associated chest pain, headache, visual disturbances, nausea or vomiting, abdominal pain or extremity swelling weakness or tingling. Patient states that he has had similar symptoms previously and has been evaluated by his family support worker and does not wish to have pacemaker placement. In the ED EKG showed atrial flutter with left axis deviation. Troponin was negative x 1 Hospital Course Mr. Wheeler is a 81-year-old male with past medical history of CAD status post stent placement 5 years ago, A. fib, bradycardia, diabetes mellitus, hypertension who presents to the ED today secondary to dyspnea 4-5 days admitted secondary to symptomatic bradycardia Of note: Due to the patient's difficulty walking and is a left-sided deficits due to recent CVA in combination with his recent anticoagulation status, I highly recommend that the patient be followed up with home health nursing, PT, OT. The patient is technically a candidate for SNF placement however he is not agreeable to this option at this time. Patient should have 2-3 visits weekly with home health for maximization of medication compliance as well as rehabilitation from recent hospitalization. Symptomatic bradycardia with associated shortness of breath. POA. 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 Patient complains of minor residual left-sided weakness Physical therapy confirms minor left-sided deficits noted in balance and movement. 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 - Continue with pacemaker as placement previously planned - Initial injury likely secondary to atrial fibrillation, anticoagulation beginning 06/28 Coronary artery disease. POA. Presumed stable Stent to left circumflex and angioplasty to the LAD (2011) Continue home meds aspirin, Plavix Diabetes mellitus type II. POA. Presumed stable Hold home glipizide A1c 5.8 Diabetic peripheral neuropathy. POA. Presumed stable Bilateral pain radiating down both legs, patient also complaining of pain in the right big toe No previous diagnosis of gout, possibly secondary to neuropathy Continue gabapentin Continue off on folic acid Consider CBD, consider oxycodone A1c 5.8 Hypothyroidism. Present on admission. Presumed stable TSH elevated Continue Levothyroxine 100 g Hypertension. POA. Presumed stable Change losartan to irbesartan Initiate carvedilol at 12.5 mg twice a day Start Imdur 30 mg Atrial fibrillation. Chronic. POA. Presumed stable. Not on Coumadin -Patient initiated on Eliquis therapy starting 06/28 Exam Vital Signs (Last) Date Time Temp Pulse Resp B/P Pulse Ox O2 Delivery O2 Flow Rate FiO2 06/28/17 08:51 Supplement Oxygen 06/28/17 08:34 62 06/28/17 08:28 36.5 16 178/103 96 06/25/17 17:07 2.00 Exam General: No acute distress, well-developed, well-nourished Head: Normocephalic, atraumatic. External ears without defect. Eyes: Pupils equal, round, and reactive to light and accommodation. Anicteric sclerae, moist conjunctivae. Neck: Normal range of motion, no lymphadenopathy noted Cardiovascular: Regular rate and rhythm with no murmurs, rubs, or gallops appreciated Pulmonary: Clear to auscultation bilaterally with no crackles, wheezes, or rhonchi. Normal respiratory effort with no use of accessory muscles. Abdomen: Bowel tones present. Soft, nontender, nondistended. Extremities: No clubbing, cyanosis, edema Skin: Normal temperature, turgor, and texture; no rash, ulcers, or subcutaneous nodules appreciated. Neurological: Cranial nerves grossly intact. Reflexes, coordination, and sensory function within normal limits. Normal muscle strength, tone, and bulk. Psychiatric: Normal mood and affect. Alert and oriented to person, place, and time Test 06/24/17 16:52 06/24/17 17:56 06/24/17 20:48 06/25/17 02:30 Hemoglobin A1c 5.9% (4.8-5.6) Pro-B-Type Natriuretic Peptide 680.7pg/mL (0-486) Hold Desai Top Tube Received (Received) Urine Color Yellow (YELLOW) Urine Appearance Clear (CLEAR,HAZY) Urine pH 5.0 (5.0-8.0) Urine Specific [place] 1.010 (1.003-1.035) Urine Protein Negativemg/dL (NEG,TRACE) Urine Glucose (UA) Negativemg/dL (NEGATIVE) Urine Ketones Negativemg/dL (NEGATIVE) Urine Occult Blood Negative (NEGATIVE) Urine Nitrite Negative (NEGATIVE) Urine Bilirubin Negative (NEGATIVE) Urine Urobilinogen Normalmg/dL (NORMAL) Urine Leukocyte Esterase Negative (NEGATIVE) Urine RBC 0-2/hpf (0-2) Urine WBC 0-5/hpf (0-5) Urine Epithelial Cells Occasional/hpf (NONE-MOD) Urine Crystals None seen (NONE SEEN) Urine Bacteria None/hpf (NONE-FEW) Urine Hyaline Casts None/lpf (NONE) Urine Granular Casts None seen (NONE SEEN) Urine Waxy Casts None seen (NONE SEEN) Urine Red Blood Cell Casts None seen (NONE SEEN) Urine White Blood Cell Casts None seen (NONE SEEN) Urine Mucus None seen (None Seen) Urine Trichomonas None seen (NONE SEEN) Urine Yeast None (NONE SEEN) Urinalysis Comment None Urine Culture Reflexed Not indicated Triglycerides Level 176mg/dL (0-149) Cholesterol Level 186mg/dL (100-199) LDL Cholesterol, Calculated 120.800mg/dL (0-99) VLDL Cholesterol 35.200mg/dL HDL Cholesterol 30mg/dL (>39) Cholesterol/HDL Ratio 6.20 (0.0-4.4) Thyroid Stimulating Hormone (TSH) 8.450uIU/mL (0.450-4.500) Troponin T 0.010ug/L (0.0-0.011) Test 06/25/17 12:25 06/26/17 02:15 06/27/17 04:25 06/28/17 03:08 Uric Acid 5.3mg/dL (2.6-7.2) Free Thyroxine 0.75ng/dL (0.82-1.77) Phosphorus Level 4.2mg/dL (2.5-4.9) Magnesium Level 1.9mg/dL (1.6-2.6) Neutrophils (%) (Auto) 71.1% (40-74) Lymphocytes (%) (Auto) 15.8% (14-46) Monocytes (%) (Auto) 8.3% (4-12) Eosinophils (%) (Auto) 3.6% (0-5) Basophils (%) (Auto) 0.9% (0-3) Total Bilirubin 0.4mg/dL (0.0-1.2) Aspartate Amino Transf (AST/SGOT) 25U/L (0-50) Alanine Aminotransferase (ALT/SGPT) 19U/L (0-44) Alkaline Phosphatase 51U/L (25-160) Total Protein 6.8g/dL (6.4-8.4) Albumin 3.8g/dL (3.4-5.0) White Blood Count 5.4th/mm3 (3.8-10.1) Red Blood Count 3.81mil/mm3 (4.40-5.80) Hemoglobin 12.8g/dL (13.8-17.2) Hematocrit 36.6% (41.0-50.0) Mean Corpuscular Volume 96.1fL (81-100) Mean Corpuscular Hemoglobin 33.6pg (27.0-35.0) Mean Corpuscular Hemoglobin Concent 35.0% (32.0-37.0) Red Cell Distribution Width 13.2% (12.3-15.4) Platelet Count 128bil/L (150-400) Sodium Level 140mEq/L (134-144) Potassium Level 4.5mEq/L (3.5-5.2) Chloride Level 104mEq/L (97-108) Carbon Dioxide Level 20mmol/L (18-29) Blood Urea Nitrogen 31mg/dL (8-27) Creatinine 1.27mg/dL (0.76-1.27) Estimat Glomerular Filtration Rate 58mL/min (>59) Glucose Level 121mg/dL (60-99) Calcium Level 8.9mg/dL (8.5-10.1) Discharge Medications Discharge Medications Alpha Lipoic Acid (Alpha Lipoic Acid) 600 Mg Capsule 600 MG PO TID Prescribed by: EDWAR RUTH DO Apixaban (Eliquis) 5 Mg Tablet 5 MG PO BID Prescribed by: EDWAR RUTH DO Aspirin (Aspirin) 325 Mg Tablet.dr 325 MG PO BID (Reported) Carvedilol (Carvedilol) 12.5 Mg Tablet 12.5 MG PO BID Prescribed by: EDWAR RUTH DO Clopidogrel Bisulfate (Plavix) 75 Mg Tablet 75 MG PO DAILY Prescribed by: ROSI GARCIA MD Doxycycline Monohyd (Doxycycline Monohyd) 100 Mg Capsule 100 MG PO DAILY Prescribed by: EDWAR RUTH DO Gabapentin (Neurontin) 300 Mg Capsule 300-900 MG PO TID (Reported) Glipizide ER (Glipizide ER) 2.5 Mg Tab.er.24 2.5 MG PO AM (Reported) Irbesartan (Irbesartan) 300 Mg Tablet 300 MG PO DAILY Prescribed by: EDWAR RUTH DO Isosorbide MN ER (Isosorbide MN ER) 30 Mg Tab.er.24h 30 MG PO 0730 Prescribed by: EDWAR RUTH DO Levothyroxine (Levothyroxine) 100 Mcg Tablet 100 MCG PO DAILYAC Prescribed by: EDWAR RUTH DO Multivitamin (Once Daily) 1 Each Tablet 1 EACH PO DAILY (Reported) Potassium Chloride (Potassium Chloride) 10 Meq Tab.er.prt 10 MEQ PO DAILY ( Reported) TAKE WITH FOOD As needed Glucosamine Sulfate 2Kcl (Glucosamine) 1,000 Mg Tablet 1,000 MG PO DAILY PRN PRN For Pain (Reported) Lidocaine HCl (Lidocaine) 142 Appl/37.5 Gm Oint 1 APPL TOP q8 hours PRN PRN For Pain (Reported) Additional med instructions We would like you to continue home medications as previous except for the following changes: He may continue to take aspirin, Plavix, glipizide, glucosamine, lidocaine, multivitamin, potassium chloride all as previous We would like you to take your gabapentin consistently at 900 mg 3 times per day Begin taking: Carvedilol 12.5 mg twice a day Doxycycline 100 mg daily Isosorbide mononitrate extended release 30 mg daily We have changed your: Levothyroxine from 88 g daily to 100 g daily Losartan 100 mg daily to Irbesartan 300 mg daily Alpha lipoic acid from 600 mg daily to 600 mg 3 times per day Followup Plan Disposition: Home Follow-up plan Because of the many changes to your medication regimen it is important that you get close follow-up with a primary care provider. We have also set up an appointment for you with the pacemaker clinic who will contact you and let you know the date of this appointment, we would also like you to follow-up with Bebo Munoz in 4-6 weeks, you will also get a call about that appointment. Again, home health will also following up with you 2-3 times per week initially for physical therapy and occupational therapy as well as nursing. Discharge Diet: Heart Healthy Discharge Activity: Home Health Phyical Therapy Patient Instructions We would like you to continue following taking medications as outlined above. We have discussed possible remedies for the pain in her toes, firstly we suggest taking gabapentin as scheduled 3 times a day. Additionally taking your alpha lipoic acid 600 mg 3 times a day. If your pain is still uncontrolled with these adjustments consider CBD at night for pain and/or low-dose oxycodone 2.5-5 mg. We have arranged for home health nursing, physical therapy, occupational therapy to assist you at home with medications, movement and rehabilitation. Please be very careful sitting/standing she we are now starting you on a blood thinning medication which can have serious effects if you were to fall. In any event that you are to hit her head you should come to the emergency department as soon as possible. Follow-up Provider: Manuel Childress MD Follow-up with PCP in: 1 week Provider: [facility] Follow-up in: 1 week Time spent Greater than 30 minutes was spent in preparation of discharge with greater than 50% of that time dedicated to patient counseling and coordination of care. . Attending Statement The patient was seen and examined together with Dr. Ruth on 06/28/17 and I agree with the history, exam and plan as outlined in the note above. copies to: Manuel Childress MD, Adam J DO Jun 28, 2017 16:09 Buck Gaytan MD Jun 28, 2017 16:33
== END 2017-06-28 12:30 | disposition home health service (06) | DRG 243 ==
LOC: SED 14:13 → PCC 19:01
PROVIDERS: ADMIT Internal Medicine; ATTEND Internal Medicine
PROC: 0JH604Z Insertion of Pacemaker, Single Chamber into Chest Subcutaneous Tissue and Fascia, Open Approach (ICD-10-PCS; principal; 2017-06-27)
PROC: 02HK3JZ Insertion of Pacemaker Lead into Right Ventricle, Percutaneous Approach (ICD-10-PCS; 2017-06-27)
DX: I49.5 Sick sinus syndrome (principal); I69.354 Hemiplegia and hemiparesis following cerebral infarction affecting left non-dominant side; Z95.5 Presence of coronary angioplasty implant and graft; Z79.82 Long term (current) use of aspirin; E03.9 Hypothyroidism, unspecified; Z87.891 Personal history of nicotine dependence; I25.10 Atherosclerotic heart disease of native coronary artery without angina pectoris; I10 Essential (primary) hypertension; I48.2 Chronic atrial fibrillation; E11.42 Type 2 diabetes mellitus with diabetic polyneuropathy